=== PATIENT | female | born 1995 | race Caucasian/White ===

== ENCOUNTER 2020-12-08 20:10 | Inpatient (IN) | payer BC ==
[2020-12-08] MEDS ORDERED: Methylergonovine 0.2 MG/1 ML Amp IM PRN (21:56)
[2020-12-08] MEDS ORDERED: Sodium Chloride 0.9% 10 ML Syringe FLUSH PRN (21:56)
[2020-12-08] MEDS ORDERED: Naloxone 2 MG/2 ML Syringe IVPUSH PRN (21:56)
[2020-12-08] MEDS ORDERED: Lidocaine 1% 30 ML SDV INJECT PRN (21:56)
[2020-12-08] MEDS ORDERED: ePHEDrine 50 MG/ML SDV IVPUSH PRN (21:56)
[2020-12-08] MEDS ORDERED: Misoprostol 50 MCG (1/2 of 100 MCG) Tab VAG PRN (21:56)
[2020-12-08] MEDS ORDERED: Ondansetron 4 MG/2 ML SDV IVPUSH PRN ×2 (21:56)
[2020-12-08] MEDS ORDERED: Promethazine 25 MG/ML SDV IM PRN (21:56)
[2020-12-08] MEDS ORDERED: Lactated Ringers 1,000 ML IV ONE (21:56)
[2020-12-08] MEDS ORDERED: fentaNYL 100 MCG/2 ML SDV IVPUSH PRN (21:56)
[2020-12-08] MEDS ORDERED: Acetaminophen 325 MG Tab PO PRN ×2 (21:56)
[2020-12-08] MEDS ORDERED: Tranexamic Acid 1,000 MG in Sodium Chloride 0.9% 100 ML IV PRN (21:56)
[2020-12-08] MEDS ORDERED: Carboprost Tromethamine 250 MCG/1 ML Amp IM PRN (21:56)
[2020-12-08] MEDS ORDERED: Misoprostol 400 MCG (4 X 100 MCG TAB) RECTAL PRN (21:56)
[2020-12-08] MEDS ORDERED: Lactated Ringers 500 ML IV SCH ×2 (22:00)
[2020-12-08] MEDS ORDERED: Oxytocin/Normal Saline 30 UNIT/500 ML BAG IV SCH ×2 (22:00)
[2020-12-08] MEDS ORDERED: hydrOXYzine HCl 25 MG Tab PO ONE (22:02)
[2020-12-09] MEDS: Misoprostol 25 MCG (1/4 of 100 MCG) Tab VAG PRN ×2 (04:04→08:20)
--- NOTE | 2020-12-09 11:51 | HP ---
CHIEF COMPLAINT: Elevated blood pressures. HISTORY OF PRESENT ILLNESS: A 25-year-old, 2, para 0-0-1-0 at 39 and 1/7 weeks' gestation based on last menstrual period, presented to Labor and Delivery reporting persistent elevated blood pressures at home that would actually be quite variable, but she was getting some in the 140s/90s and understood that she needed to return to the hospital should that happen. Denied any overt symptoms of preeclampsia. Reported good movement. No leakage of fluid or vaginal bleeding, but knew that induction for gestational hypertension would likely be necessary. Otherwise, reporting no new problems or concerns. Occasional contractions, nothing regular and no change in pelvic pressure. PAST MEDICAL HISTORY: Anxiety, chickenpox, difficult venous access, and menarche at age 12 or 13 with regular periods and average flow. PAST SURGICAL HISTORY: [place] teeth. FAMILY HISTORY: Mother and father are both alive and have a high blood pressure. Brother, Herbie is , he had situs inversus and was born with a 2-chambered heart, only the left 2 chambers were present, and lived to age 16. Maternal grandmother alive with high blood pressure. Maternal grandfather , heart attack and heart disease. Paternal grandmother alive and healthy. Paternal grandfather , heart attack and heart disease. There are other family members with multiples. Otherwise, no family history of bleeding or clotting disorders, anesthesia problems, cystic fibrosis, seizures, or defects. SOCIAL HISTORY: The patient in June of 2018 and lives in [place]. This will be the first child for both her and her . She works at the [employer] and recently tested for her [employer] license. 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 They do have some dogs. Rachelle is a former smoker. Dariel's family history is only remarkable for his father dying of heart disease- related complications. ALLERGIES: No known drug allergies. MEDICATIONS: vitamin 1 daily and Tums as needed for reflux and heartburn. LABS: Blood type A positive. Rubella immune. Syphilis negative. Urine culture negative. Hepatitis B negative. HIV negative. Gonorrhea and chlamydia negative. TSH normal at 2.98. Hepatitis C negative. Wet prep negative. Group B strep negative. 1-hour glucose tolerance test normal at 129. OBSTETRICAL HISTORY: Prior miscarriage in October of 2019, 8 weeks 6 days gestation, passed spontaneously. REVIEW OF SYSTEMS: As per the history of present illness. No fever, chills, nausea, vomiting, diarrhea, constipation, other signs or symptoms of illness or acute disease. PHYSICAL EXAMINATION: Vital Signs: Initial blood pressure 152/100, recheck 155/104, temperature is 99.4, pulse 104, respiratory rate of 16, blood pressures more recently have been down as low as 104/55. HEENT: Head normocephalic and atraumatic. Eyes, ears, nose, mouth are overall unremarkable. Neck: Supple Heart: Regular without murmur. Lungs: Clear to auscultation bilaterally. Abdomen: Gravid, soft, nontender. Baby palpates vertex. There is some skin edema on the abdomen. heart tracing 150 beats per minute at baseline with moderate cnbp-bx-eant variability. [place] showing contractions every 3 to 4 minutes on the strip that I am looking at from 7:30 in the morning. Cervix initially about 1.5 cm, 50%, high, posterior, and difficult to reach. After her second dose of Cytotec, it was 4 cm, about 60%, mid position. Extremities: 2+ pitting edema. No erythema or tenderness. Neurologic: Reflexes 2+, equal. No clonus. No focal neurological deficits. LABORATORY DATA: Hemoglobin 12.1, platelets 168. Protein- creatinine ratio 235. COVID test is negative. Of note, PIH labs were done yesterday at the clinic and overall negative. ASSESSMENT: 1. 39 and 1/7 weeks' intrauterine . 2. Gestational hypertension. 3. Blood type A positive, rubella immune, group B streptococcus negative. 4. History of spontaneous x1. 5. Difficult venous access. PLAN: The patient admitted to the hospital for induction of labor which will be carried out with Cytotec and then likely convert over to Pitocin and artificial rupture of membranes when appropriate. [facility] /[id number]
[2020-12-09] MEDS: Lactated Ringers 1,000 ML IV SCH ×2 (13:30→14:10)
[2020-12-09] MEDS ORDERED: fentaNYL 100 MCG/2 ML SDV ONE (13:47)
[2020-12-09] MEDS ORDERED: EPINEPHrine 1 MG/ML SDV ONE (13:48)
--- NOTE | 2020-12-09 14:33 | PCM.PRNOTE ---
- Free Text/Narrative Note: Requested to provide analgesia to full term patient in severe pain. Upon entering the room, patient is sitting on edge of bed complaining of severe abdominal/pelvic pain and discomfort. Procedure was discussed with patient including adverse outcomes and expectations. Pt consented to analgesia, SAB/IT. Pt placed into a proper sitting position. Landmarks for SAB/IT were identified and marked. Hands were washed and appropriate PPE was applied. Back was prepped with betadine x3. A sterile, transparent, fenestrated drape was applied. Excess betadine was removed. Using 3 mL of a 1% lidocaine solution, a skin wheel was placed at the L2/L3 interspace. A 24 ga (4 inch) Pencan spinal needle was inserted until positive for CSF. Negative for heme or paresthesias. Injected fentanyl 30 mcg, sufentanil 25 mcg, and 7.5 mg of a 0.75% bupivacaine solution with an epi wash. Pt was placed left lateral tilt position for approximately 20 minutes. There were zero complications or adverse outcomes. Will continue to monitor. Procedure Date & Time: 12/09/20 [id number]
[2020-12-09] MEDS ORDERED: Tranexamic Acid 1,000 MG in Sodium Chloride 0.9% 100 ML IV PRN (19:22)
[2020-12-09] MEDS ORDERED: Misoprostol 400 MCG (4 X 100 MCG TAB) RECTAL PRN (19:22)
[2020-12-09] MEDS ORDERED: Acetaminophen 325 MG Tab PO PRN (19:22)
[2020-12-09] MEDS ORDERED: Simethicone 80 MG Tab.Chew PO PRN (19:22)
[2020-12-09] MEDS ORDERED: Benzocaine/Menthol 20%-0.5% Spray 78 GM Cannister TOP PRN (19:22)
[2020-12-09] MEDS ORDERED: Carboprost Tromethamine 250 MCG/1 ML Amp IM PRN (19:22)
[2020-12-09] MEDS ORDERED: Docusate Sodium 100 MG Cap PO PRN (19:22)
[2020-12-09] MEDS: Ferrous Sulfate 325 MG Tab PO SCH (21:58)
[2020-12-09] MEDS: Ibuprofen 800 MG Tab PO PRN (21:58)
[2020-12-09] MEDS: ceFAZolin 1 GM in Sodium Chloride 0.9% 50 ML IV SCH (21:58)
--- NOTE | 2020-12-09 22:36 | DEL ---
DATE: 12/09/2020 PREPROCEDURE DIAGNOSES: 1. 39 and 2/7 weeks intrauterine based on last menstrual period. 2. 2, para 0-0-1-0. 3. Difficult venous access. 4. Gestational hypertension. 5. History of spontaneous x1. 6. Blood type A positive, rubella immune, and group B Streptococcus negative. POSTPROCEDURE DIAGNOSES: 1. 39 and 2/7 weeks intrauterine based on last menstrual period. 2. 2, para 0-0-1-0. 3. Difficult venous access. 4. Gestational hypertension. 5. History of spontaneous x1. 6. Blood type A positive, rubella immune, and group B Streptococcus negative. 7. hemorrhage due to uterine atony. 8. Status post spontaneous vaginal delivery. 9. Status post second-degree repair. 10.Status post bimanual massage and administration of uterotonic agent. BRIEF HISTORY: A 25-year-old female admitted to the hospital for induction of labor due to gestational hypertension at term. She received a total of 3 doses of Cytotec and natural labor then took over and she got to 7 cm dilated, at which time, intrathecal was administered followed by artificial rupture of membranes. After about 11 hours of stage I labor, she went on to spontaneous vaginal delivery with details below pushing for about an hour and a half and placenta delivering within 7 minutes. The patient did not need magnesium sulfate as she was not preeclamptic. Blood pressures were labile and she was not given blood pressure medications as they would range anywhere from 147/84 down to 104/55 spontaneously. DETAILS: With the patient in dorsal lithotomy position, she delivered a viable female infant over intact perineum in the LAURA position. Infant was dried, stimulated, and mouth and nose bulb suctioned and baby placed upon mother's abdomen. After a delay, 3-vessel umbilical cord was doubly clamped and cut, and cord blood sample obtained. Placenta then delivered by gentle cord traction and concomitant uterine massage. She was having very brisk bleeding and Pitocin was called to run at 999 while bimanual massage was being performed. Hemabate and Cytotec were also called for and administered. Once the bleeding was controlled, placenta was inspected and intact. The uterus was explored a couple of times to remove retained blood clots, but no retained tissue was appreciated. Labia, vagina, and cervix inspected and there was only a second-degree laceration, which was repaired in the usual fashion under 1% lidocaine without epinephrine with a 3-0 Vicryl suture and good hemostatic control was achieved. The patient tolerated the procedure well. Sponge, needle, and instrument counts were correct and the patient doing well, remaining in the hospital room. FINDINGS: Viable female infant. scores of 8 and 9. Weight pending. Uterine atony likely due to large infant and having to undergo induction of labor. DISPOSITION: Mother and baby to stay in the room to initiate breast-feeding. ESTIMATED BLOOD LOSS: 1000 mL. COMPLICATIONS: hemorrhage due to uterine atony. [facility] /[id number]
[2020-12-10] MEDS: ceFAZolin 1 GM in Sodium Chloride 0.9% 50 ML IV SCH ×2 (05:55→15:17)
[2020-12-10] MEDS: Ibuprofen 800 MG Tab PO PRN ×3 (05:59→22:31)
--- NOTE | 2020-12-10 08:24 | PN ---
DATE: 12/10/2020 SUBJECTIVE: day #1, 25-year-old, 2, now para 1-0-1-1, status post spontaneous vaginal delivery with second-degree laceration repair and uterine atony requiring bimanual massage and uterotonic agents. Reports that she is doing well. Blood loss has been controlled. No shortness of breath or chest pain. Voiding without difficulties and stools have been loose. She is also passing flatus well. is difficult mostly related to baby's latch and she will need some assistance with that today. Otherwise, she denies any acute concerns. OBJECTIVE: Vital Signs: Maximum blood pressure since delivery is 134/94. Otherwise, they have been within normal limits. Most recent 130/74. Pulse of 105, respiratory rate of 16, temperature 98.6. Heart: Regular without obvious murmur. Lungs: Clear to auscultation bilaterally. Abdomen: Soft, nontender. Fundus is firm and below the umbilicus. Extremities: 2+ edema. No erythema or tenderness noted. LABORATORY DATA: Hemoglobin is down to 9.6 and platelets are at 166. ASSESSMENT: 1. Post vaginal delivery day #1. 2. hemorrhage due to uterine atony, controlled with bimanual massage and uterotonic agents. 3. Gestational hypertension. Blood pressure is currently controlled, ruled out for preeclampsia. 4. Obesity. PLAN: Continue routine cares. Continue her Ancef for full 24 hours due to performing uterine exploration to verify that there were no retained products of conception contributing to her bleeding. Otherwise, she will be taking some iron for her anemia, but it does not look like she will be needing a transfusion. healthcare network pricing consultant should be in today to help her with and will be anticipating discharge home tomorrow as long as all continues to go well. [facility] /[id number]
[2020-12-10] MEDS: Prenatal Multivitamin with Calcium/Folic Acid/Iron Tab PO SCH (08:25)
[2020-12-10] MEDS: Ferrous Sulfate 325 MG Tab PO SCH ×2 (08:25→20:29)
[2020-12-11] MEDS: Ibuprofen 800 MG Tab PO PRN (08:18)
[2020-12-11] MEDS: Ferrous Sulfate 325 MG Tab PO SCH (08:19)
[2020-12-11] MEDS: Prenatal Multivitamin with Calcium/Folic Acid/Iron Tab PO SCH (08:19)
[2020-12-11] MEDS ORDERED: EPINEPHrine 1 MG/ML SDV ONE (10:47)
[2020-12-11] MEDS ORDERED: fentaNYL 100 MCG/2 ML SDV ITHECAL ONE (10:47)
--- NOTE | 2020-12-11 13:13 | DISCH ---
ADMITTING DIAGNOSES: 1. 39 and 1/7 weeks' gestation by last menstrual period. 2. 2, para 0-0-1-0. 3. Difficult venous access. 4. Gestational hypertension. 5. History of spontaneous x1. 6. Blood type A positive, rubella immune, group B streptococcus negative. DISCHARGE DIAGNOSES: 1. 39 and 2/7 weeks' gestation by last menstrual period. 2. 2, para 1-0-1-1. 3. Difficult venous access. 4. Gestational hypertension. 5. History of spontaneous x1. 6. Blood type A positive, rubella immune, group B streptococcus negative. 7. Uterine atony. 8. hemorrhage. 9. Status post vaginal delivery with uterine exploration, bimanual massage. 10.Second-degree laceration repair. PROCEDURES PERFORMED: Induction of labor with Cytotec, intrathecal for pain management, artificial rupture of membranes, spontaneous vaginal delivery, second-degree laceration repair, bimanual massage. BRIEF HISTORY: A 25-year-old female admitted to the hospital for gestational hypertension, frgldkg-na-lyrreygasz ratio of 235, and ruled out for preeclampsia. Induction carried out with 2 to 3 doses of Cytotec before her natural labor kicked in. After receiving an intrathecal at 7 cm, artificial rupture membranes performed, and she went on to natural labor at that time. Total stage 1 labor of approximately 11 hours. She pushed for an hour and a half and had stage 2 only for 7 minutes. She delivered a viable female weighing 4155 g, 9 pounds 2 ounces at 1820 and baby did well. HOSPITAL COURSE: The patient has been doing well, ambulating, tolerating regular diet, denying symptoms of preeclampsia. No chest pain. No shortness of breath. No nausea, no vomiting. After delivery, voiding and stooling without difficulty, passing flatus. seems to be going well. Bonding appropriately and feeling ready for discharge today. No lightheadedness. No chest pain or shortness of breath. Blood pressures have been controlled without administration of any medications. DISCHARGE CONDITION: Good. OBJECTIVE: Vital Signs: Temperature is 98.1, pulse 92, blood pressure 132/86, respiratory rate of 16, O2 saturations 100% on room air. Heart: Regular without obvious murmur. Lungs: Clear to auscultation bilaterally. Abdomen: Soft, nontender. Fundus is firm and below the umbilicus. Extremities: 1+ pitting edema at this time, however, she does have pitting edema all the way up into her shoulders and still on her abdomen. Neurologic: No focal findings. LABORATORY DATA: Admission hemoglobin 12.1, discharge 9.6. Admission platelets 268, discharge 166. Tmqeahq-li-ytlnyfqwiy ratio of 235 and COVID test was negative. DISPOSITION: Home with family. MEDICATIONS: Iron 325 mg twice daily, Colace 100 mg twice daily as needed for constipation, ibuprofen 800 mg every 8 hours as needed for pain, Tylenol 650 mg every 6 hours as needed for pain, vitamin 1 p.o. daily. INSTRUCTIONS: Routine post vaginal delivery care instructions provided for a mother. FOLLOWUP: We can check her blood pressures when she comes in for the 2-day and 2-week well-child visit. She also has a blood pressure cuff to monitor her pressures at home and was made aware of preeclampsia followup instructions and to monitor for signs and symptoms. Otherwise, she will have a routine care appointment at 6 weeks . [facility] /[id number]
== END 2020-12-11 10:50 | disposition home or self-care (01) | DRG 560 ==
LOC: DL.OBCHECK 20:10 → DL.OB 21:57 → OBSVTOIN 12-09 18:20
PROVIDERS: ADMIT Family Medicine; ATTEND Family Medicine
PROC: 10E0XZZ Delivery of Products of Conception, External Approach (ICD-10-PCS; principal; 2020-12-09)
PROC: 0KQM0ZZ Repair Perineum Muscle, Open Approach (ICD-10-PCS; 2020-12-09)
PROC: 3E0P7VZ Introduction of Hormone into Female Reproductive, Via Natural or Artificial Opening (ICD-10-PCS; 2020-12-09)
PROC: 10907ZC Drainage of Amniotic Fluid, Therapeutic from Products of Conception, Via Natural or Artificial Opening (ICD-10-PCS; 2020-12-09)
PROC: 4A1HXCZ Monitoring of Products of Conception, Cardiac Rate, External Approach (ICD-10-PCS; 2020-12-09)
PROC: 3E033VJ Introduction of Other Hormone into Peripheral Vein, Percutaneous Approach (ICD-10-PCS; 2020-12-09)
PROC: 3E0R3BZ Introduction of Anesthetic Agent into Spinal Canal, Percutaneous Approach (ICD-10-PCS; 2020-12-09)
PROC: 00HU33Z Insertion of Infusion Device into Spinal Canal, Percutaneous Approach (ICD-10-PCS; 2020-12-09)
DX: O13.4 Gestational [pregnancy-induced] hypertension without significant proteinuria, complicating childbirth (principal); Z3A.39 39 weeks gestation of pregnancy; Z37.0 Single live birth; O72.1 Other immediate postpartum hemorrhage; O70.1 Second degree perineal laceration during delivery; Z87.891 Personal history of nicotine dependence; O99.214 Obesity complicating childbirth; Z20.822 Contact with and (suspected) exposure to COVID-19
CPT/HCPCS: 01967; 36415; 59409; 82570; 84156; 85027; A9270-GY; J0171; J0690; J2405; J2590; J3010; J7120; U0002

== ENCOUNTER 2022-07-29 11:51 | Inpatient (IN) | payer OTHER ==
[~2022-07-29 11:51] MED LIST: Lactated Ringers 1,000 ML IV ONE
[2022-07-29] MEDS ORDERED: Ondansetron 4 MG/2 ML SDV IVPUSH PRN (12:00)
[2022-07-29] MEDS ORDERED: Tranexamic Acid 1,000 MG in Sodium Chloride 0.9% 100 ML IV PRN (12:00)
[2022-07-29] MEDS ORDERED: Misoprostol 50 MCG (1/2 of 100 MCG) Tab VAG PRN (12:00)
[2022-07-29] MEDS ORDERED: Acetaminophen 325 MG Tab PO PRN ×2 (12:00)
[2022-07-29] MEDS ORDERED: Carboprost Tromethamine 250 MCG/1 ML Amp IM PRN (12:00)
[2022-07-29] MEDS ORDERED: Misoprostol 400 MCG (4 X 100 MCG TAB) RECTAL PRN (12:00)
[2022-07-29] MEDS ORDERED: Sodium Chloride 0.9% 10 ML Syringe FLUSH PRN (12:00)
[2022-07-29] MEDS ORDERED: Lidocaine 1% 30 ML SDV INJECT PRN (12:00)
[2022-07-29] MEDS ORDERED: fentaNYL 100 MCG/2 ML SDV IVPUSH PRN (12:00)
[2022-07-29] MEDS ORDERED: Oxytocin/Normal Saline 30 UNIT/500 ML BAG IV SCH ×2 (12:00)
[2022-07-29] MEDS ORDERED: Methylergonovine 0.2 MG/1 ML Amp IM PRN (12:00)
[2022-07-29 12:22] LABS: HEMATOCRIT 37.2 % (37.0-47.0); HEMOGLOBIN 12.3 g/dL (12.0-16.0); MEAN CORPUSCULAR HEMOGLOBIN 28.5 pg (27.0-34.0); MEAN CORPUSCULAR HGB CONC 33.1 g/dL (33.0-35.0); MEAN CORPUSCULAR VOLUME 86.1 fL (80-100); RED BLOOD CELL COUNT 4.32 10^6/uL (4.2-5.4); WHITE BLOOD CELL COUNT,WBC 10.7 10^3/uL (5.0-10.0)
[2022-07-29] MEDS: Lactated Ringers 1,000 ML IV SCH (18:00)
[2022-07-29] MEDS: Misoprostol 25 MCG (1/4 of 100 MCG) Tab VAG PRN (18:20)
[2022-07-29] MEDS ORDERED: hydrOXYzine HCl 25 MG Tab PO ONE (23:37)
[2022-07-30] MEDS: Misoprostol 25 MCG (1/4 of 100 MCG) Tab VAG PRN (02:30)
[2022-07-30] MEDS ORDERED: Bupivacaine 0.25% 10 ML SDV ONE (07:54)
[2022-07-30] MEDS ORDERED: fentaNYL 100 MCG/2 ML SDV ONE (07:54)
[2022-07-30] MEDS ORDERED: Phenylephrine HCl In 0.9% NaCl 1 MG/10 ML Syringe IVPUSH PRN (08:22)
[2022-07-30] MEDS ORDERED: ePHEDrine 50 MG/ML SDV IVPUSH PRN (08:22)
[2022-07-30] MEDS ORDERED: Ropivacaine 200 MG in Premix Bag 1 BAG EPIDUR SCH (08:30)
[2022-07-30] MEDS: Lactated Ringers 1,000 ML IV SCH (08:35)
[2022-07-30] MEDS ORDERED: Benzocaine/Menthol 20%-0.5% Spray 78 GM Cannister TOP PRN (10:04)
[2022-07-30] MEDS ORDERED: Tranexamic Acid 1,000 MG in Sodium Chloride 0.9% 100 ML IV PRN (10:04)
[2022-07-30] MEDS ORDERED: Simethicone 80 MG Tab.Chew PO PRN (10:04)
[2022-07-30] MEDS ORDERED: Carboprost Tromethamine 250 MCG/1 ML Amp IM PRN (10:04)
[2022-07-30] MEDS ORDERED: Acetaminophen 325 MG Tab PO PRN (10:04)
[2022-07-30] MEDS ORDERED: Misoprostol 400 MCG (4 X 100 MCG TAB) RECTAL PRN (10:04)
[2022-07-30] MEDS ORDERED: Bisacodyl 10 MG Supp RECTAL PRN (10:04)
[2022-07-30] MEDS ORDERED: Sodium Chloride 0.9% 10 ML Syringe FLUSH PRN (10:04)
[2022-07-30] MEDS ORDERED: Hydrocortisone 2.5% Crm 30 GM Tube TOP PRN (10:04)
[2022-07-30] MEDS ORDERED: Witch Hazel Medicated Pads 100/Jar TOP PRN (10:04)
[2022-07-30] MEDS: Ibuprofen 800 MG Tab PO PRN ×2 (12:40→20:32)
[2022-07-30] MEDS: Benzocaine/Cetylpyridinium/Menthol Lozenge MUCMEM PRN ×3 (12:59→20:32)
[2022-07-30] MEDS: Docusate Sodium 100 MG Cap PO PRN (20:32)
[2022-07-31 06:34] LABS: HEMATOCRIT 36.1 % (37.0-47.0); HEMOGLOBIN 11.6 g/dL (12.0-16.0); MEAN CORPUSCULAR HEMOGLOBIN 28.3 pg (27.0-34.0); MEAN CORPUSCULAR HGB CONC 32.1 g/dL (33.0-35.0); RED BLOOD CELL COUNT 4.1 10^6/uL (4.2-5.4); WHITE BLOOD CELL COUNT,WBC 10.2 10^3/uL (5.0-10.0)
[2022-07-31] MEDS: Docusate Sodium 100 MG Cap PO PRN (08:35)
[2022-07-31] MEDS: Benzocaine/Cetylpyridinium/Menthol Lozenge MUCMEM PRN ×2 (08:35→11:29)
[2022-07-31] MEDS: Ibuprofen 800 MG Tab PO PRN (08:36)
[2022-07-31] MEDS ORDERED: Prenatal Multivitamin with Calcium/Folic Acid/Iron Tab PO SCH (09:00)
[2022-07-31] MEDS ORDERED: Measles, Mumps & Rubella Vaccine 0.5 ML SDV SUBCUT ONE (09:00)
[2022-07-31] MEDS ORDERED: Labetalol 100 MG Tab PO SCH (11:13)
[2022-07-31 12:13] LABS: CREATININE,URINE RAND < 13.00 mg/dL (No establ ref range); PROTEIN,URINE RANDOM < 6.0 mg/dL (0.0-11.9)
== END 2022-07-31 12:15 | disposition home or self-care (01) | DRG 806 ==
LOC: DL.OBCHECK 11:51 → DL.OB 11:54 → OBSVTOIN 07-30 09:41
PROVIDERS: ADMIT Family Medicine; ATTEND Family Medicine
PROC: 10E0XZZ Delivery of Products of Conception, External Approach (ICD-10-PCS; principal; 2022-07-30)
PROC: 0HQ9XZZ Repair Perineum Skin, External Approach (ICD-10-PCS; 2022-07-30)
PROC: 3E0R3BZ Introduction of Anesthetic Agent into Spinal Canal, Percutaneous Approach (ICD-10-PCS; 2022-07-30)
PROC: 00HU33Z Insertion of Infusion Device into Spinal Canal, Percutaneous Approach (ICD-10-PCS; 2022-07-30)
DX: O13.4 Gestational [pregnancy-induced] hypertension without significant proteinuria, complicating childbirth (principal); Z37.0 Single live birth; Z3A.38 38 weeks gestation of pregnancy; O99.12 Other diseases of the blood and blood-forming organs and certain disorders involving the immune mechanism complicating childbirth; O99.214 Obesity complicating childbirth; O99.344 Other mental disorders complicating childbirth; O70.0 First degree perineal laceration during delivery; D69.6 Thrombocytopenia, unspecified; F41.9 Anxiety disorder, unspecified; Z86.16 Personal history of COVID-19
CPT/HCPCS: 01967; 36415; 51701; 59409; 82570; 84156; 85027; 90471; 90707; A9270-GY; J2405; J2590; J3010; J7120